=== PATIENT | female | born 1985 | race Caucasian/White ===

== ENCOUNTER 2017-11-24 16:27 | Emergency (ER) | payer OTHER ==
[~2017-11-24] VITALS: Ht 175.3 cm; Wt 132.1 kg
[~2017-11-24 16:27] MED LIST: ALBUTEROL SULF8.5 GM IH; APRESOLINE25 MG PO; CLONAZEPAM0.5 MG PO; DAILY VITE WIT1 EACH PO; DIFLUCAN150 MG PO; EFFEXOR XR150 MG PO; ELAVIL25 MG PO; FLEXERIL10 MG PO; HYCODAN SYRUP480 ML PO; KEFLEX500 MG PO; LICE TREATMENT118 ML TP; MONTELUKAST SOD10 MG PO; MOTRIN800 MG PO; NAPROSYN500 MG PO; NOHOMEMEDS; PREDNISONE20 MG PO; PROAIR HFA8.5 GM IH; SINGULAIR10 MG PO; TOPAMAX100 MG PO; TOPAMAX50 MG PO; ZOFRAN ODT4 MG PO
[2017-11-24] MEDS ORDERED: PREDNISONE20 MG PO (19:19)
[2017-11-24] MEDS ORDERED: DIFLUCAN150 MG PO (19:19)
[2017-11-24 19:59] VITALS: BP 161/96
== END 2017-11-24 20:01 | disposition home or self-care (01) ==
LOC: EME 16:27
DX: J02.9 Acute pharyngitis, unspecified (principal); R05 Cough; R07.9 Chest pain, unspecified; J45.909 Unspecified asthma, uncomplicated; Z87.891 Personal history of nicotine dependence
CPT/HCPCS: 71020; 94640; 99281; 99284

== ENCOUNTER 2018-01-22 06:41 | Emergency (ER) | payer OTHER ==
[~2018-01-22] VITALS: Ht 175.3 cm; Wt 130.2 kg
[2018-01-22 06:51] VITALS: BP 135/90
[2018-01-22] MEDS ORDERED: PREDNISONE50 MG PO (07:41)
[2018-01-22] MEDS ORDERED: DIFLUCAN150 MG PO (07:41)
== END 2018-01-22 08:14 | disposition home or self-care (01) ==
LOC: EME 06:41
DX: J45.909 Unspecified asthma, uncomplicated (principal); R05 Cough; F17.200 Nicotine dependence, unspecified, uncomplicated; K21.9 Gastro-esophageal reflux disease without esophagitis; F32.9 Major depressive disorder, single episode, unspecified; F41.9 Anxiety disorder, unspecified; E28.2 Polycystic ovarian syndrome; Z88.0 Allergy status to penicillin; Z88.8 Allergy status to other drugs, medicaments and biological substances
CPT/HCPCS: 99281; 99283

== ENCOUNTER 2018-02-28 01:10 | Emergency (ER) | payer OTHER ==
[~2018-02-28] VITALS: Ht 175.3 cm; Wt 131.1 kg
[~2018-02-28 01:10] MED LIST changes: +PREDNISONE50 MG PO
[2018-02-28 01:50] LABS: HEMATOCRIT 37.8 % (36.0-46.0); HEMOGLOBIN 12.9 G/DL (11.9-15.5); MCH 29.7 PG (29.0-34.0); MCHC 34.1 G/DL (30.0-36.0); MCV 86.9 FL (83-99); PLATELET COUNT 153 K/uL (156-360); RBC DIS.WIDTH-SD 38.7 % (39-53); RED BLOOD COUNT 4.35 M/uL (3.80-5.20); WHITE BLOOD COUNT 3.1 K/uL (4.1-10.2)
[2018-02-28 01:58] LABS: CHLORIDE 109 mEq/L (99-109); POTASSIUM 3.8 mEq/L (3.7-5.4); SODIUM 142 mEq/L (136-147)
[2018-02-28 01:59] LABS: GLUCOSE 73 mg/dL (70-99)
[2018-02-28 02:03] LABS: CREATININE 0.8 mg/dL (0.6-1.3); GFR ESTIMATE (CALCULATED) > 59 mL/min/
[2018-02-28 02:04] LABS: UREA NITROGEN (BUN) 13 mg/dL (9-23)
[2018-02-28 04:31] LABS: QUANTITATIVE HCG < 4.0 MIU/ML
[2018-02-28 07:16] VITALS: BP 112/61
== END 2018-02-28 07:17 | disposition home or self-care (01) ==
LOC: EME 01:10
DX: G43.909 Migraine, unspecified, not intractable, without status migrainosus (principal); R07.89 Other chest pain; J45.901 Unspecified asthma with (acute) exacerbation; R42 Dizziness and giddiness; K21.9 Gastro-esophageal reflux disease without esophagitis; F41.9 Anxiety disorder, unspecified; F32.9 Major depressive disorder, single episode, unspecified; F17.200 Nicotine dependence, unspecified, uncomplicated; Z88.0 Allergy status to penicillin; Z88.8 Allergy status to other drugs, medicaments and biological substances
CPT/HCPCS: 71046; 80048; 84702; 85027; 94640; 99281; 99285; J1885; J2765; J3475; J7040